=== PATIENT | female | born 1995 | race Caucasian/White ===

== ENCOUNTER 2017-09-26 08:27 | Emergency (ER) | payer BC ==
[2017-09-26 08:49] VITALS: BP 136/80
[2017-09-26] MEDS ORDERED: Ondansetron ODT TAB* 4 MG PO ONE (09:12)
--- NOTE | 2017-09-26 09:18 | UC ---
Abdominal Pain Female HPI - HPI Summary HPI Summary: Starting early this morning she had upper abd pain that radiates to the Left and right upper quadrants. No fever. Slight diarrhea. No bleeding. No prior abd disease or surgery. There has not been any post prandial pain leading up to this. The pain is in waves. - History of Current Complaint Chief Complaint: UCGI Stated Complaint: ABD PAIN Time Seen by Provider: 09/26/17 08:32 Hx Obtained From: Patient Hx Last Menstrual Period: 09/20/17 Onset/Duration: Gradual Onset, Lasting Hours Timing: Intermittent Episodes Lasting: - minutes Severity Initially: Moderate Severity Currently: Moderate Pain Intensity: 5 Location: Epigastric Character: Aching, Cramping Aggravating Factor(s): Nothing Alleviating Factor(s): Nothing Associated Signs and Symptoms: Positive: Nausea, Diarrhea. Negative: Fever, Cough, Constipation, Blood in Stool, Urinary Symptoms, Vaginal Bleeding, Vaginal Discharge Allergies/Adverse Reactions: Allergies Allergy/AdvReac Type Severity Reaction Status Date / Time No Known Allergies Allergy Verified 09/26/17 08:38 PMH/Surg Hx/FS Hx/Imm Hx Previously Healthy: Yes - Surgical History Surgical History: None - Family History Known Family History: Positive: Other - no related stomach disorders. - Social History Alcohol Use: Occasionally Substance Use Type: None Smoking Status (MU): Never Smoked Tobacco - Immunization History Most Recent Influenza Vaccination: no Review of Systems Gastrointestinal: Abdominal Pain, Diarrhea, Nausea All Other Systems Reviewed And Are Negative: Yes Physical Exam Triage Information Reviewed: Yes Appearance: Well-Appearing - Non toxic. occassionally she will hold upper abd and have a cramp but is still smilling and pleasant. She changes position easily without obvious pain. Vital Signs: Initial Vital Signs Temp 98.3 F 09/26/17 08:41 Pulse 111 09/26/17 08:41 Resp 20 09/26/17 08:41 BP 136/80 09/26/17 08:41 Pulse Ox 99 09/26/17 08:41 Vital Signs Reviewed: Yes Eyes: Positive: Conjunctiva Clear ENT: Positive: Normal ENT inspection, Pharynx normal Neck: Positive: Supple, Nontender, No Lymphadenopathy Respiratory: Positive: Normal breath sounds, No respiratory distress, No accessory muscle use. Negative: Respiratory distress, Decreased breath sounds, Accessory muscle use, Crackles, Rhonchi, Stridor, Wheezing Cardiovascular: Positive: No Murmur, Pulses Normal, Brisk Capillary Refill Abdomen Description: Positive: No Organomegaly, Soft, Other: - Epigastric tenderness with deep palpation without rebound or guarding.. Negative: CVA Tenderness (R), CVA Tenderness (L), Distended, Guarding, McBurney's Point Tenderness Musculoskeletal: Positive: Strength Intact, ROM Intact, No Edema Neurological: Positive: Alert, Muscle Tone Normal. Negative: Fatigued Psychological: Positive: Normal Response To Family, Age Appropriate Behavior Skin: Negative: rashes Abd Pain Female Course/Dx - Course Course Of Treatment: Benign exam. NO signs of gall bladder disease. She is not very tender to suggest acute pancreatitis. This is most c/w enteritis. Clears for 24 hours then soft diet. zofran and bentyl for supportive care. She agrees to go to ED for any worsening. - Differential Dx/Diagnosis Differential Diagnosis: Bowel Obstruction, Constipation, Diverticulitis, Ectopic , Gall Bladder Disease, Hepatitis, Irritable Bowel Syndrome, Pancreatitis, Pelvic Inflammatory Disease, , Renal Colic, Urinary Tract Infection Provider Diagnoses: abd pain. epigastric pain Discharge - Discharge Plan Condition: Good Disposition: HOME Prescriptions: Dicyclomine CAP* [Bentyl CAP*] 10 mg PO TID PRN #20 cap PRN Reason: Pain Ondansetron ODT TAB* [Zofran 4 MG Odt TAB*] 4 mg PO Q8H PRN #12 tab.odt PRN Reason: Emesis Patient Education Materials: Acute Abdominal Pain (ED) Referrals: Non Staff,Doctor [Primary Care Provider] - Additional Instructions: Go to ED for fever, bleeding or worsening symptoms as we discussed.
== END 2017-09-26 09:39 | disposition home or self-care (01) ==
LOC: UCCORT 08:27
DX: R10.13 Epigastric pain (principal); Z32.02 Encounter for pregnancy test, result negative
CPT/HCPCS: 81003; 84702; 99212; A9270-GY; G0463